=== PATIENT | female | born 1935 | race Caucasian/White ===

== ENCOUNTER 2019-07-21 12:59 | Observation (INO) ==
[2019-07-21 15:02] LABS: Basophils % 0.3 % (0.0-0.8); Eosinophils # 0.2 10*3/uL (0.0-0.87); Eosinophils % 2.3 % (0.00-10.9); Hematocrit 36.8 VOL% (35.7-47.0); Hemoglobin 11.3 GM/DL (12.0-16.0); Immature Granulocytes % 0.3 %; Immature Granulocytes Absolute 0.02 #; Lymphocytes # 2.9 10*3/uL (1.4-4.0); Lymphocytes % 41.7 % (21.3-54.2); Mean Corpuscular HGB Conc 30.7 GM/DL (32-36); Monocytes % 7.3 % (1.7-12.7); Neutrophils % 48.1 % (38.7-73.9); Platelet Count 225 T/CUMM (130-400); Red Blood Count 4.18 MC/CUMM (3.8-5.5); Red Cell Distribution Width 15.7 % (9.3-17.3)
[2019-07-21 15:07] LABS: Apearance,Urine CLEAR (Clear); Bacteria,Urine Occasional /HPF (Few); Bilirubin,Urine Negative (Negative); Blood, Urine Negative (Negative); Glucose,Urine (UA) Negative (Negative); Ketones,Urine Negative (Negative); Nitrite,Urine Negative (Negative); Protein,Urine Negative; RBC,Urine 1 /HPF (0-4); Squamous Epithelial Cell,Urine Occasional /HPF (0-10); Urine Color Straw (Yellow); Urine Specific Gravity 1.008 (1.001-1.035); Urine Urobilinogen < 2.0 EU/DL (0.2-1.0); WBC,Urine <1 /HPF (0-6)
[2019-07-21 15:34] LABS: Albumin 3.5 G/DL (3.4-5.0); Bilirubin,Total 0.6 MG/DL (0.2-1.0); Calcium 8.8 MG/DL (8.5-10.1); Osmolality,Calculated 284.1 MOS/KG (273-304); Total Protein 6.8 G/DL (6.4-8.3)
[2019-07-21] MEDS ORDERED: ATORVASTATIN 40 MG TABLET PO SCH (21:00)
[2019-07-21] MEDS: ALPRAZolam 0.5 MG TABLET PO SCH (21:55)
[2019-07-21] MEDS: APIXABAN 5 MG TABLET PO SCH (21:56)
[2019-07-21] MEDS: CARVEDILOL 12.5 MG TABLET PO SCH (21:56)
[2019-07-22 04:46] LABS: Basophils % 0.1 % (0.0-0.8); Eosinophils # 0.2 10*3/uL (0.0-0.87); Eosinophils % 2.5 % (0.00-10.9); Hematocrit 34.1 VOL% (35.7-47.0); Hemoglobin 10.3 GM/DL (12.0-16.0); Immature Granulocytes % 0.3 %; Immature Granulocytes Absolute 0.02 #; Lymphocytes # 2.6 10*3/uL (1.4-4.0); Lymphocytes % 38.5 % (21.3-54.2); Mean Corpuscular HGB Conc 30.2 GM/DL (32-36); Mean Corpuscular Volume 88.6 FL (87-102); Mean Platelet Volume 10.8 FL (9.6-12.0); Monocytes % 8.2 % (1.7-12.7); Neutrophils % 50.4 % (38.7-73.9); Platelet Count 220 T/CUMM (130-400); Red Blood Count 3.85 MC/CUMM (3.8-5.5); Red Cell Distribution Width 15.8 % (9.3-17.3); White Blood Count 6.8 T/CUMM (4-12)
[2019-07-22 05:15] LABS: Albumin 3.1 G/DL (3.4-5.0); Bilirubin,Total 1.4 MG/DL (0.2-1.0); Calcium 8.8 MG/DL (8.5-10.1); Osmolality,Calculated 285.1 MOS/KG (273-304); Total Protein 6.3 G/DL (6.4-8.3)
[2019-07-22 05:19] LABS: Free T4 (Free Thyroxine) 1.09 NG/DL (0.76-1.46); Risk Ratio 4.7; Thyroid Stimulating Hormone 3.37 uIU/ml (0.358-3.74); VLDL CHOLESTEROL 32.4 MG/DL
[2019-07-22] MEDS ORDERED: FUROSEMIDE 20 MG/2 ML VIAL IV SCH (08:00)
[2019-07-22] MEDS ORDERED: ATORVASTATIN 40 MG TABLET PO SCH (08:58)
[2019-07-22] MEDS: APIXABAN 5 MG TABLET PO SCH ×2 (10:35→21:15)
[2019-07-22] MEDS: CARVEDILOL 12.5 MG TABLET PO SCH ×2 (10:35→21:15)
[2019-07-22] MEDS: PANTOPRAZOLE 40 MG TABLET PO SCH (10:35)
[2019-07-22] MEDS: ALPRAZolam 0.5 MG TABLET PO SCH ×2 (10:35→21:15)
[2019-07-22] MEDS: FUROSEMIDE 20 MG TABLET PO SCH (10:39)
[2019-07-22] MEDS: OMEGA 3 ACID ETHYL ESTERS 1 GM CAPSULE PO SCH ×2 (10:39→21:15)
[2019-07-23 05:55] LABS: Basophils % 0.3 % (0.0-0.8); Eosinophils # 0.2 10*3/uL (0.0-0.87); Eosinophils % 2.8 % (0.00-10.9); Hemoglobin 10.5 GM/DL (12.0-16.0); Immature Granulocytes % 0.5 %; Immature Granulocytes Absolute 0.03 #; Lymphocytes # 2.8 10*3/uL (1.4-4.0); Mean Corpuscular Volume 90.4 FL (87-102); Mean Platelet Volume 10.1 FL (9.6-12.0); Monocytes % 9.2 % (1.7-12.7); Neutrophils % 44.2 % (38.7-73.9); Platelet Count 201 T/CUMM (130-400); Red Blood Count 3.87 MC/CUMM (3.8-5.5); Red Cell Distribution Width 15.8 % (9.3-17.3); White Blood Count 6.5 T/CUMM (4-12)
[2019-07-23 06:15] LABS: Bilirubin,Total 1.7 MG/DL (0.2-1.0); Calcium 8.7 MG/DL (8.5-10.1); Osmolality,Calculated 283.3 MOS/KG (273-304); Total Protein 6.3 G/DL (6.4-8.3)
[2019-07-23] MEDS: PANTOPRAZOLE 40 MG TABLET PO SCH (08:46)
[2019-07-23] MEDS: FUROSEMIDE 20 MG TABLET PO SCH (08:46)
[2019-07-23] MEDS: APIXABAN 5 MG TABLET PO SCH (08:46)
[2019-07-23] MEDS: CARVEDILOL 12.5 MG TABLET PO SCH (08:46)
[2019-07-23] MEDS: OMEGA 3 ACID ETHYL ESTERS 1 GM CAPSULE PO SCH (08:46)
[2019-07-23] MEDS: ALPRAZolam 0.5 MG TABLET PO SCH (09:25)
[2019-07-23 09:54] VITALS: BP 159/87
== END 2019-07-23 12:50 | disposition home or self-care (01) ==
LOC: N.ED 12:59 → N.EDINP 12:59 → N.5E 19:04